=== PATIENT | female | born 1980 | race Hispanic/Latino ===

== ENCOUNTER 2018-12-06 11:57 | Emergency (ER) | payer MEDICAID, OTHER ==
--- NOTE | 2018-12-06 12:53 | Emergency Department Report ---
Blank Doc - Documentation Documentation: This is a 38-year-old female that presents with acute on chroinc lower back pain with radiation to foot. Stated has bulging disc in lumbar spine. Was picking up something and started to have pain. Denies any urinary symptoms. This initial assessment diagnostic orders/clinical plan/treatment(s) is/are subject to change based on patient's health status, clinical progression and re- assessment by fellow clinical providers in the ED. Further treatment and workup at subsequent clinical providers discretion. Patient/guardians urged not to elope from ED s their condition may be serious if not clinically assessed and managed. Initial orders include: 1-patient sent to [facility] for further evaluation and treatment.
[2018-12-06] MEDS ORDERED: DELTASONE PO ONE (16:24)
[2018-12-06] MEDS ORDERED: TORADOL IM ONE (16:24)
--- NOTE | 2018-12-06 16:24 | Emergency Department Report ---
ED Back Pain/Injury HPI - General Chief Complaint: Back Pain/Injury Stated Complaint: BACK PAIN/BULGING DISC Time Seen by Provider: 12/06/18 12:51 Source: patient Limitations: No Limitations - History of Present Illness Initial Comments: This is a 38-year-old female with a history of herniated disc lumbar region causing chronic back pain who presents to ED stating that she may have She denies trauma, injury, falls, dysuria, fever, chills, nausea or vomiting MD Complaint: back pain -: Gradual, month(s) Place: home Radiation: buttocks Severity: mild, moderate Severity scale (0 -10): 5 Consistency: intermittent - Related Data Previous Rx's Medication Instructions Recorded Last Taken Type Cyclobenzaprine [Flexeril] 10 mg PO QHS PRN #20 tablet 12/06/18 Unknown Rx Naproxen [Naprosyn] 500 mg PO BID #30 tablet 12/06/18 Unknown Rx Allergies Allergy/AdvReac Type Severity Reaction Status Date / Time No Known Allergies Allergy Unverified 12/06/18 12:53 ED Review of Systems ROS: Stated complaint: BACK PAIN/BULGING DISC Other details as noted in HPI Comment: All other systems reviewed and negative ED Past Medical Hx - Past Medical History Previous Medical History?: Yes Additional medical history: Bulging discs in L3, L4, & L5 - Surgical History Past Surgical History?: Yes Additional Surgical History: RFA - Social History Smoking Status: Current Every Day Smoker Substance Use Type: Alcohol - Medications Home Medications: Home Medications Medication Instructions Recorded Confirmed Last Taken Type Cyclobenzaprine [Flexeril] 10 mg PO QHS PRN #20 tablet 12/06/18 Unknown Rx Naproxen [Naprosyn] 500 mg PO BID #30 tablet 12/06/18 Unknown Rx ED Physical Exam - General Limitations: No Limitations General appearance: alert, in no apparent distress - Head Head exam: Present: atraumatic, normocephalic - Eye Eye exam: Present: normal appearance - ENT ENT exam: Present: mucous membranes moist - Neck Neck exam: Present: normal inspection - Respiratory Respiratory exam: Present: normal lung sounds bilaterally. Absent: respiratory distress - Cardiovascular Cardiovascular Exam: Present: regular rate, normal rhythm. Absent: systolic murmur, diastolic murmur, rubs, gallop - GI/Abdominal GI/Abdominal exam: Present: soft, normal bowel sounds - Extremities Exam Extremities exam: Present: normal inspection - Back Exam Back exam: Present: normal inspection - Neurological Exam Neurological exam: Present: alert, oriented X3 - Psychiatric Psychiatric exam: Present: normal affect, normal mood - Skin Skin exam: Present: warm, dry, intact, normal color. Absent: rash ED Course Vital Signs 12/06/18 12/06/18 12/06/18 12:51 16:30 17:41 Temperature 98.6 F Pulse Rate 72 70 Respiratory 18 18 18 Rate Blood Pressure 117/72 Blood Pressure 120/72 [Right] O2 Sat by Pulse 97 97 Oximetry ED Medical Decision Making - Medical Decision Making 38-year-old female presents with chronic acute on chronic back pain She has history of Lumbar radiculopathy Discussed follow-up with orthopedic doctor. She states that she is aware of this. Vital signs are normal patient is in no acute or respiratory distress She recently was sentences she has instructions. Vital signs normal patient is in no acute distress. Critical care attestation.: If time is entered above; I have spent that time in minutes in the direct care of this critically ill patient, excluding procedure time. ED Disposition Clinical Impression: Lumbar radiculopathy Disposition: -01 TO HOME OR SELFCARE Is pt being admited?: No Does the pt Need Aspirin: No Condition: Stable Instructions: Lumbar Disc Herniation (ED), Lumbar Radiculopathy (ED) Additional Instructions: Make sure to follow up with the primary care physician as discussed. Take all your medications as you've been prescribed. If you have any worsening symptoms or develop new symptoms please return to ED immediately. Prescriptions: Cyclobenzaprine [Flexeril] 10 mg PO QHS PRN #20 tablet PRN Reason: Muscle Spasm Naproxen [Naprosyn] 500 mg PO BID #30 tablet Referrals: MONTRELL CERRATO MD [Primary Care Provider] - 3-5 Days [facility] [Provider Group] - 3-5 Days Forms: Work/School Release Form Time of Disposition: 16:24
[2018-12-06 17:42] VITALS: BP 120/72
== END 2018-12-06 17:42 | disposition home or self-care (01) ==
LOC: ED 11:57
DX: M54.16 Radiculopathy, lumbar region (principal); F17.200 Nicotine dependence, unspecified, uncomplicated
CPT/HCPCS: 96372; 99282; J1885; J7512